=== PATIENT | female | born 2000 | race Caucasian/White ===

== ENCOUNTER → 2021-09-15 | Outpatient (CLI) | payer OTHER | END | disposition home or self-care (01) | LOC: LABWHC1 14:36 | PROVIDERS: ATTEND Obstetrics & Gynecology | DX: O20.0 Threatened abortion (principal) | CPT/HCPCS: 36415; 84702 ==

== ENCOUNTER 2021-09-21 22:28 | Emergency (ER) | payer OTHER ==
[2021-09-21 23:17] VITALS: TEMP 98.8
[2021-09-21 23:48] LABS: Basophils # (A) 0.1 k/uL (0-0.2); Basophils % (A) 1 %; Eosinophils # (A) 0.4 k/uL (0-0.7); Eosinophils % (A) 5 %; HCT 39.1 % (34.0-46.0); HGB 12.8 gm/dL (11.4-16.0); Lymphocytes # (A) 2.3 k/uL (1.0-4.8); Lymphocytes % (A) 27 %; MCH 30.8 pg (25.0-35.0); MCHC 32.6 g/dL (31.0-37.0); MCV 94.5 fL (80.0-100.0); Mean Platelet Volume 7.6; Monocytes # (A) 0.5 k/uL (0-1.0); Monocytes % (A) 5 %; Neutrophils # (A) 5.1 k/uL (1.3-7.7); Neutrophils % (A) 60 %; Platelet Count 269 k/uL (150-450); RBC 4.14 m/uL (3.80-5.40); RDW 12.3 % (11.5-15.5); WBC 8.5 k/uL (4.0-11.0)
[2021-09-21 23:58] LABS: ALT 10 U/L (4-34); AST 14 U/L (14-36); African American GFR (CKD) >90 (>60 ml/min/1.73 sqM); Alkaline Phosphatase 50 U/L (38-126); Anion Gap 10 mmol/L; Blood Urea Nitrogen 7 mg/dL (7-17); Calcium 9.3 mg/dL (8.4-10.2); Carbon Dioxide 26 mmol/L (22-30); Chloride 102 mmol/L (98-107); Glucose 88 mg/dL (74-99); Non-African American GFR(CKD) >90 (>60 ml/min/1.73 sqM); Potassium 3.6 mmol/L (3.5-5.1); Sodium 138 mmol/L (137-145); Total Bilirubin 0.4 mg/dL (0.2-1.3)
[2021-09-22 00:02] LABS: Appearance,Urine Cloudy (Clear); Bilirubin,Urine Negative (Negative); Blood,Urine Large (Negative); Color,Urine Yellow; Glucose,Urine (UA) Negative (Negative); Ketones,Urine Negative (Negative); Leukocyte Esterase,Urine Small (Negative); Mucus,Urine Many /hpf; Nitrite,Urine Negative (Negative); Protein,Urine 1+ (Negative); RBC,Urine 14 /hpf (0-5); Specific Gravity,Urine 1.031 (1.001-1.035); Squamous Epithelial Cell,Urine 7 /hpf (0-4); WBC,Urine 7 /hpf (0-5)
[2021-09-22 00:14] LABS: HCG,Quantitative Serum 9167.6 mIU/mL
--- NOTE | 2021-09-22 01:41 | US ---
EXAMINATION TYPE: Transabdominal DATE OF EXAM: 09/22/2021 1:25 AM COMPARISON: US CLINICAL HISTORY: Vag bleeding/6 weeks. Vaginal bleeding. Hx right ovarian cyst removed. . EXAM PERFORMED: Transvaginal (TV) and Transabdominal (TA) EXAM MEASUREMENTS: GESTATIONAL AGE / DATING Physician Established: Not yet established. Dates by LMP: (6 weeks/3 days) EDC: 05/15/2022 Dates by First Scan: IUP not seen on last exam. Dates by Current Scan for: ( 6 weeks/0 days) EDC: 05/18/2022 by CRL measurement. GS measures out of range transvaginally, GS measures 5 weeks, 1 day Transabdominally. MATERNAL ANATOMY Uterus: 7.0 x 5.9 x 4.6 cm. Anteverted. Right Ovary: 3.9 x 2.2 x 2.2 cm. Left Ovary: 3.1 x 1.8 x 1.3 cm. Post CDS / Adnexa: Appear wnl. Presence of free fluid: None seen. Presence of corpus luteal cyst: Possible within right ovary-Complex area with vascularity seen: 2.1 x 1.5 x 1.9 cm. Presence of subchorionic bleed: Not sen. GESTATION / SURVEY CRL: 0.38 cm. (6 weeks/0 days) MSD: OOR TV, 1.04 cm TA. (5 weeks/1 day by TA) Yolk Sac (normal less than 6mm): Not seen. Heart Rate: 69 bpm Rhythm: Difficult to measure HR, measures low. IUP: CRL seen measuring 6 weeks/ 0 days, HR of 69 bpm. Date of LMP: 08/08/2021 Beta HcG (if available): 9,167.6 mIU/mL IMPRESSION: Intrauterine gestational sac. The ultrasound gestational age is 6 weeks. No evidence of ectopic .
--- NOTE | 2021-09-22 01:46 | ED ---
General Adult HPI - General Chief complaint: Vaginal Bleeding Stated complaint: vaginal bleeding, 6 weeks preg Time Seen by Provider: 09/22/21 00:37 Source: patient Mode of arrival: ambulatory Limitations: no limitations - History of Present Illness Initial comments: 20 year-old female patient presents to the emergency department for evaluation of vaginal bleeding in . She is , roughly six weeks along. States she has been having bleeding for the last two weeks. States tonight she noticed a small blood clot and became very concerned. Bleeding has been light. Not soaking through any pads. Has not had to wear a pad/tampon/panty liner at all. States she has had mild cramping. Denies any back pain. She did have initial visit at OBGYN office for labs. Has not seen the physician yet. Last serum HCG 2626. - Related Data Previous Rx's Medication Instructions Recorded Cephalexin [Keflex] 500 mg PO Q12HR 3 Days #6 cap 09/12/21 78/Iron/Folate 1/Dha 1 each PO DAILY 30 Days #30 capsule 09/12/21 [Prenate Dha Softgel] Allergies Allergy/AdvReac Type Severity Reaction Status Date / Time No Known Allergies Allergy Verified 09/21/21 23:13 Review of Systems ROS Statement: Those systems with pertinent positive or pertinent negative responses have been documented in the HPI. ROS Other: All systems not noted in ROS Statement are negative. Past Medical History Past Medical History: No Reported History History of Any Multi-Drug Resistant Organisms: None Reported Past Surgical History: No Surgical Hx Reported Additional Past Surgical History / Comment(s): Ovarian cyst Past Psychological History: Depression Smoking Status: Vaper Past Alcohol Use History: None Reported Past Drug Use History: Marijuana General Exam Limitations: no limitations General appearance: alert, in no apparent distress, other (This is a well- developed, well-nourished adult female in no acute distress.) ENT exam: Present: normal exam, normal oropharynx, mucous membranes moist Respiratory exam: Present: normal lung sounds bilaterally. Absent: respiratory distress, wheezes, rales, rhonchi, stridor Cardiovascular Exam: Present: regular rate, normal rhythm, normal heart sounds. Absent: systolic murmur, diastolic murmur, rubs, gallop, clicks GI/Abdominal exam: Present: soft, normal bowel sounds. Absent: distended, tenderness, guarding, rebound, rigid Neurological exam: Present: alert, oriented X3, CN II-XII intact Psychiatric exam: Present: normal affect, normal mood Skin exam: Present: warm, dry, intact, normal color. Absent: rash Course Vital Signs 09/21/21 23:13 Temperature 98.8 F Pulse Rate 97 Respiratory 18 Rate Blood Pressure 120/62 O2 Sat by Pulse 100 Oximetry Medical Decision Making - Medical Decision Making 20-year-old female patient is presented to the emergency department today for evaluation after passing a blood clot. She is 6 weeks . Did have ultrasound 2 weeks ago which showed no intrauterine . Labs reviewed today and reveal elevated hCG at 9167. Previous hCG was 2626. ABO/Rh is A+. US today showed intrauterine measuring 6 weeks, heart rate 69, no evidence for subchorionic. I did discuss results with the patient. She is instructed to follow up with OBGYN tomorrow. I did give lab slip to have repeat HCG in two days. Did discuss threatened miscarriage. She is to maintain pelvic rest until cleared by OBGYN. He verbalizes understanding and is discharged in stable condition. My attending is Dr. Rangel. - Lab Data Result diagrams: 09/21/21 23:39 09/21/21 23:39 Lab Results 09/21/21 09/21/21 09/21/21 Range/Units 23:17 23:39 23:39 WBC 8.5 (4.0-11.0) k/uL RBC 4.14 (3.80-5.40) m/uL Hgb 12.8 (11.4-16.0) gm/dL Hct 39.1 (34.0-46.0) % MCV 94.5 (80.0-100.0) fL MCH 30.8 (25.0-35.0) pg MCHC 32.6 (31.0-37.0) g/dL RDW 12.3 (11.5-15.5) % Plt Count 269 (150-450) k/uL MPV 7.6 Neutrophils % 60 % Lymphocytes % 27 % Monocytes % 5 % Eosinophils % 5 % Basophils % 1 % Neutrophils # 5.1 (1.3-7.7) k/uL Lymphocytes # 2.3 (1.0-4.8) k/uL Monocytes # 0.5 (0-1.0) k/uL Eosinophils # 0.4 (0-0.7) k/uL Basophils # 0.1 (0-0.2) k/uL Sodium 138 (137-145) mmol/L Potassium 3.6 (3.5-5.1) mmol/L Chloride 102 (98-107) mmol/L Carbon Dioxide 26 (22-30) mmol/L Anion Gap 10 mmol/L BUN 7 (7-17) mg/dL Creatinine 0.63 (0.52-1.04) mg/dL Est GFR (CKD-EPI)AfAm >90 (>60 ml/min/1.73 sqM) Est GFR (CKD-EPI)NonAf >90 (>60 ml/min/1.73 sqM) Glucose 88 (74-99) mg/dL Calcium 9.3 (8.4-10.2) mg/dL Total Bilirubin 0.4 (0.2-1.3) mg/dL AST 14 (14-36) U/L ALT 10 (4-34) U/L Alkaline Phosphatase 50 (38-126) U/L Total Protein 7.0 (6.3-8.2) g/dL Albumin 4.0 (3.5-5.0) g/dL HCG, Quant 9167.6 mIU/mL Urine Color Yellow Urine Appearance Cloudy H (Clear) Urine pH 6.0 (5.0-8.0) Ur Specific [place] 1.031 (1.001-1.035) Urine Protein 1+ H (Negative) Urine Glucose (UA) Negative (Negative) Urine Ketones Negative (Negative) Urine Blood Large H (Negative) Urine Nitrite Negative (Negative) Urine Bilirubin Negative (Negative) Urine Urobilinogen 3.0 (<2.0) mg/dL Ur Leukocyte Esterase Small H (Negative) Urine RBC 14 H (0-5) /hpf Urine WBC 7 H (0-5) /hpf Ur Squamous Epith Cells 7 H (0-4) /hpf Urine Mucus Many H (None) /hpf Blood Type Blood Type Recheck Bld Type Recheck Status 09/21/21 Range/Units 23:39 WBC (4.0-11.0) k/uL RBC (3.80-5.40) m/uL Hgb (11.4-16.0) gm/dL Hct (34.0-46.0) % MCV (80.0-100.0) fL MCH (25.0-35.0) pg MCHC (31.0-37.0) g/dL RDW (11.5-15.5) % Plt Count (150-450) k/uL MPV Neutrophils % % Lymphocytes % % Monocytes % % Eosinophils % % Basophils % % Neutrophils # (1.3-7.7) k/uL Lymphocytes # (1.0-4.8) k/uL Monocytes # (0-1.0) k/uL Eosinophils # (0-0.7) k/uL Basophils # (0-0.2) k/uL Sodium (137-145) mmol/L Potassium (3.5-5.1) mmol/L Chloride (98-107) mmol/L Carbon Dioxide (22-30) mmol/L Anion Gap mmol/L BUN (7-17) mg/dL Creatinine (0.52-1.04) mg/dL Est GFR (CKD-EPI)AfAm (>60 ml/min/1.73 sqM) Est GFR (CKD-EPI)NonAf (>60 ml/min/1.73 sqM) Glucose (74-99) mg/dL Calcium (8.4-10.2) mg/dL Total Bilirubin (0.2-1.3) mg/dL AST (14-36) U/L ALT (4-34) U/L Alkaline Phosphatase (38-126) U/L Total Protein (6.3-8.2) g/dL Albumin (3.5-5.0) g/dL HCG, Quant mIU/mL Urine Color Urine Appearance (Clear) Urine pH (5.0-8.0) Ur Specific [place] (1.001-1.035) Urine Protein (Negative) Urine Glucose (UA) (Negative) Urine Ketones (Negative) Urine Blood (Negative) Urine Nitrite (Negative) Urine Bilirubin (Negative) Urine Urobilinogen (<2.0) mg/dL Ur Leukocyte Esterase (Negative) Urine RBC (0-5) /hpf Urine WBC (0-5) /hpf Ur Squamous Epith Cells (0-4) /hpf Urine Mucus (None) /hpf Blood Type A Positive Blood Type Recheck A Pos Bld Type Recheck Status No - Radiology Data Radiology results: report reviewed, image reviewed Ultrasound of the fetus was obtained. Report was reviewed in its entirety. Impression by Dr. Wharton shows intrauterine gestational sac. Ultrasound gestational age is 6 weeks. No evidence of ectopic . Heart rate of 69 bpm at this time. Disposition Clinical Impression: Threatened miscarriage Disposition: HOME SELF-CARE Condition: Good Instructions (If sedation given, give patient instructions): Threatened Misc arriage (ED) Additional Instructions: Maintain pelvic rest. Nothing inserted into the vagina until cleared by OBGYN. Call office in the morning to inform them of changes. Have repeat hormone level drawn in two days. Return to the emergency department for any new, worsening, or concerning symptoms. Is patient prescribed a controlled substance at d/c from ED?: No Referrals: Von Alonso MD [Primary Care Provider] - 1-2 days Time of Disposition: 01:46
[2021-09-22 02:13] VITALS: BP 117/80; PULSE 86; RESP 16
== END 2021-09-22 02:12 | disposition home or self-care (01) ==
LOC: EC 22:28
DX: O20.0 Threatened abortion (principal); F17.290 Nicotine dependence, other tobacco product, uncomplicated
CPT/HCPCS: 36415; 76801; 76817; 80053; 81001; 84702; 85025; 86900; 86901

== ENCOUNTER 2021-09-27 17:33 | Emergency (ER) | payer OTHER ==
[2021-09-27 17:37] VITALS: RESP 18
[2021-09-27 18:14] LABS: Basophils % (A) 1 %; Eosinophils # (A) 0.5 k/uL (0-0.7); Eosinophils % (A) 8 %; HCT 41.1 % (34.0-46.0); HGB 13.3 gm/dL (11.4-16.0); Lymphocytes % (A) 34 %; MCHC 32.3 g/dL (31.0-37.0); MCV 95.7 fL (80.0-100.0); Mean Platelet Volume 7.3; Monocytes # (A) 0.3 k/uL (0-1.0); Monocytes % (A) 6 %; Neutrophils # (A) 2.8 k/uL (1.3-7.7); Neutrophils % (A) 48 %; Platelet Count 267 k/uL (150-450); RDW 12.8 % (11.5-15.5); WBC 5.9 k/uL (4.0-11.0)
--- NOTE | 2021-09-27 18:17 | ED ---
General Adult HPI - General Chief complaint: Vaginal Bleeding Stated complaint: 6wks preg/vaginal bleeding Time Seen by Provider: 09/27/21 17:41 Source: patient Mode of arrival: ambulatory Limitations: no limitations - History of Present Illness Initial comments: 20-year-old female patient presents to the emergency department for evaluation of vaginal bleeding and . She is , 6 weeks 5 days . She has been having vaginal bleeding for the last couple of weeks. States that the bleeding seems to getting heavier though not soaking through any pads. She has been passing small blood clots. States the bleeding is more brown at this time which is a change. She does report left sided pelvic pain and pressure. She has not been able to see the [facility] yet. Was unable to return for repeat hCG test after her last visit here on 09/22/2021 due to exposure to cold with a. She did end up testing negative. Initial serum HCG 2626, last visit here was 9100 approximately 5 days ago. She denies any dizziness or weakness. Denies hematuria, dysuria, urinary frequency, urinary urgency. Denies constipation or diarrhea. - Related Data Home Medications Medication Instructions Recorded Confirmed No Known Home Medications 09/27/21 09/27/21 Allergies Allergy/AdvReac Type Severity Reaction Status Date / Time No Known Allergies Allergy Verified 09/27/21 18:55 Review of Systems ROS Statement: Those systems with pertinent positive or pertinent negative responses have been documented in the HPI. ROS Other: All systems not noted in ROS Statement are negative. Past Medical History Past Medical History: No Reported History History of Any Multi-Drug Resistant Organisms: None Reported Past Surgical History: No Surgical Hx Reported Additional Past Surgical History / Comment(s): Ovarian cyst Past Psychological History: Depression Smoking Status: Vaper Past Alcohol Use History: None Reported Past Drug Use History: Marijuana General Exam Limitations: no limitations General appearance: alert, in no apparent distress, other (This is a well- developed, well-nourished adult female in no acute distress.) ENT exam: Present: normal exam, normal oropharynx, mucous membranes moist Respiratory exam: Present: normal lung sounds bilaterally. Absent: respiratory distress, wheezes, rales, rhonchi, stridor Cardiovascular Exam: Present: regular rate, normal rhythm, normal heart sounds. Absent: systolic murmur, diastolic murmur, rubs, gallop, clicks GI/Abdominal exam: Present: soft, normal bowel sounds. Absent: distended, tenderness, guarding, rebound, rigid Neurological exam: Present: alert, oriented X3, CN II-XII intact Psychiatric exam: Present: normal affect, normal mood Skin exam: Present: warm, dry, intact, normal color. Absent: rash Course Vital Signs 09/27/21 09/27/21 17:34 20:06 Temperature 97.7 F 98.7 F Pulse Rate 100 70 Respiratory 18 18 Rate Blood Pressure 125/78 110/70 O2 Sat by Pulse 98 99 Oximetry Medical Decision Making - Medical Decision Making 20 year-old female patient presenting for persistent vaginal bleeding and passage of blood clots. Physical examination is unremarkable. Reports mild bleeding with passage of small clots. Labs reviewed and showed HCG 13,954. US OB was obtained and showed viable intrauterine measuring 6 weeks 2 days with heart rate in the 90s. I did discuss the findings with the patient. Discussed that the heart rate is low. She will be given lab order for repeat HCG in 2 days. She is instructed to maintain pelvic rest until cleared by the OBGYN. She is instructed to follow up as soon as possible. Return parameters are discussed in detail. She verbalizes understanding and agrees with this plan. My attending is Dr. Myers. - Lab Data Result diagrams: 09/27/21 18:05 09/27/21 18:05 Lab Results 09/27/21 09/27/21 09/27/21 Range/Units 18:00 18:05 18:05 WBC 5.9 (4.0-11.0) k/uL RBC 4.30 (3.80-5.40) m/uL Hgb 13.3 (11.4-16.0) gm/dL Hct 41.1 (34.0-46.0) % MCV 95.7 (80.0-100.0) fL MCH 31.0 (25.0-35.0) pg MCHC 32.3 (31.0-37.0) g/dL RDW 12.8 (11.5-15.5) % Plt Count 267 (150-450) k/uL MPV 7.3 Neutrophils % 48 % Lymphocytes % 34 % Monocytes % 6 % Eosinophils % 8 % Basophils % 1 % Neutrophils # 2.8 (1.3-7.7) k/uL Lymphocytes # 2.0 (1.0-4.8) k/uL Monocytes # 0.3 (0-1.0) k/uL Eosinophils # 0.5 (0-0.7) k/uL Basophils # 0.0 (0-0.2) k/uL Sodium 138 (137-145) mmol/L Potassium 4.1 (3.5-5.1) mmol/L Chloride 107 (98-107) mmol/L Carbon Dioxide 24 (22-30) mmol/L Anion Gap 7 mmol/L BUN 6 L (7-17) mg/dL Creatinine 0.52 (0.52-1.04) mg/dL Est GFR (CKD-EPI)AfAm >90 (>60 ml/min/1.73 sqM) Est GFR (CKD-EPI)NonAf >90 (>60 ml/min/1.73 sqM) Glucose 94 (74-99) mg/dL Calcium 8.9 (8.4-10.2) mg/dL Total Bilirubin 0.2 (0.2-1.3) mg/dL AST 15 (14-36) U/L ALT 11 (4-34) U/L Alkaline Phosphatase 49 (38-126) U/L Total Protein 6.8 (6.3-8.2) g/dL Albumin 3.9 (3.5-5.0) g/dL HCG, Quant 90799.8 mIU/mL Urine Color Yellow Urine Appearance Clear (Clear) Urine pH 6.5 (5.0-8.0) Ur Specific [place] 1.024 (1.001-1.035) Urine Protein Trace H (Negative) Urine Glucose (UA) Negative (Negative) Urine Ketones Negative (Negative) Urine Blood Small H (Negative) Urine Nitrite Negative (Negative) Urine Bilirubin Negative (Negative) Urine Urobilinogen <2.0 (<2.0) mg/dL Ur Leukocyte Esterase Negative (Negative) Urine RBC <1 (0-5) /hpf Urine WBC 1 (0-5) /hpf Ur Squamous Epith Cells 4 (0-4) /hpf Urine Mucus Few H (None) /hpf - Radiology Data Radiology results: report reviewed, image reviewed OB ultrasound is obtained. Report was reviewed in its entirety. Impression by Dr. Wharton shows ultrasound gestational age is 6 weeks and 2 days. Heart rate is 97 which is now within the normal range. Disposition Clinical Impression: Vaginal bleeding during , Threatened miscarriage Disposition: HOME SELF-CARE Condition: Good Instructions (If sedation given, give patient instructions): Threatened Miscarriage (ED) Additional Instructions: Pelvic rest, nothing inserted into the vagina until cleared by OBGYN. Follow-up with [facility] for recheck as soon as possible. Return for any new, worsening, or concerning symptoms. Is patient prescribed a controlled substance at d/c from ED?: No Referrals: Von Alonso MD [Primary Care Provider] - 1-2 days Daniel Enriquez MD [STAFF PHYSICIAN] - 1-2 days Time of Disposition: 19:40
[2021-09-27 18:33] LABS: ALT 11 U/L (4-34); AST 15 U/L (14-36); African American GFR (CKD) >90 (>60 ml/min/1.73 sqM); Albumin 3.9 g/dL (3.5-5.0); Alkaline Phosphatase 49 U/L (38-126); Anion Gap 7 mmol/L; Blood Urea Nitrogen 6 mg/dL (7-17); Calcium 8.9 mg/dL (8.4-10.2); Carbon Dioxide 24 mmol/L (22-30); Chloride 107 mmol/L (98-107); Glucose 94 mg/dL (74-99); Non-African American GFR(CKD) >90 (>60 ml/min/1.73 sqM); Potassium 4.1 mmol/L (3.5-5.1); Sodium 138 mmol/L (137-145); Total Bilirubin 0.2 mg/dL (0.2-1.3); Total Protein 6.8 g/dL (6.3-8.2)
--- NOTE | 2021-09-27 18:51 | US ---
EXAMINATION TYPE: Transabdominal DATE OF EXAM: 09/27/2021 6:31 PM COMPARISON: CLINICAL HISTORY: Heavy vaginal bleeding; passage of clots. Hx of spotting during . EXAM PERFORMED: Transabdominal (TA) EXAM MEASUREMENTS: GESTATIONAL AGE / DATING Physician Established: Not yet established Dates by LMP: (7 weeks/2 days) EDC: 05/14/2022 Dates by Current Scan for: (6 weeks/2 days) EDC: 05/21/2022 MATERNAL ANATOMY Uterus: 7.4 x 5.7 x 4.1 cm Right Ovary: 3.1 x 1.6 x 1.4 cm Left Ovary: 2.6 x 1.6 x 1.8 cm Post CDS / Adnexa: no free fluid Presence of free fluid: no Presence of corpus luteal cyst: right ovary= 1.6 x 1.4 x 1.4 cm Presence of subchorionic bleed: =0.8 x 0.7 x 0.5 cm GESTATION / SURVEY CRL: 0.4 cm (6 weeks/1 days) MSD: 1.4 cm (6 weeks/2 days) Yolk Sac (normal less than 6mm): 2.6 mm Heart Rate: 97 bpm, not within the normal range but could be due to gestational age Rhythm: Normal IUP: Viable IUP Date of LMP: 08/07/21, G1 Beta HcG (if available): Not available at this time Single live IUP measuring 6 weeks 2 days. Heart rate appears lower than normal range, could be due t o early gestational age. IMPRESSION: The ultrasound gestational age is 6 weeks and 2 days.
[2021-09-27 19:13] LABS: Appearance,Urine Clear (Clear); Bilirubin,Urine Negative (Negative); Blood,Urine Small (Negative); Color,Urine Yellow; Glucose,Urine (UA) Negative (Negative); Ketones,Urine Negative (Negative); Leukocyte Esterase,Urine Negative (Negative); Mucus,Urine Few /hpf; Nitrite,Urine Negative (Negative); PH, Urine 6.5 (5.0-8.0); Protein,Urine Trace (Negative); RBC,Urine <1 /hpf (0-5); Specific Gravity,Urine 1.024 (1.001-1.035); Squamous Epithelial Cell,Urine 4 /hpf (0-4); Urobilinogen,Urine <2.0 mg/dL (<2.0); WBC,Urine 1 /hpf (0-5)
[2021-09-27 19:18] LABS: HCG,Quantitative Serum 13954.8 mIU/mL
[2021-09-27 20:07] VITALS: BP 110/70; PULSE 70; TEMP 98.7
== END 2021-09-27 20:00 | disposition home or self-care (01) ==
LOC: EC 17:33
DX: O20.0 Threatened abortion (principal); F32.A Depression, unspecified; F17.290 Nicotine dependence, other tobacco product, uncomplicated; F12.90 Cannabis use, unspecified, uncomplicated; Z3A.01 Less than 8 weeks gestation of pregnancy
CPT/HCPCS: 36415; 76801; 80053; 81001; 84702; 85025; 99284

== ENCOUNTER → 2021-09-29 | Outpatient (CLI) | payer OTHER ==
--- NOTE | 2021-09-29 12:47 | US ---
EXAMINATION TYPE: Ultrasound OB <= 14 week fetus DATE OF EXAM: 09/29/2021 12:01 PM COMPARISON: 09/27/2021 CLINICAL HISTORY: 20-year-old female O26.851 Spotting complicating , first trimester. Contin ued vaginal bleeding in with clots noted today; ; followup subchorionic hemorrhage. EXAM PERFORMED: Transabdominal (TA). FINDINGS: EXAM MEASUREMENTS: GESTATIONAL AGE / DATING Physician Established: Not yet established Dates by LMP: 08/07/2021 (7 weeks/ 4 days) EDC: 05/14/2022 Dates by First Scan: (7 weeks/0 day) EDC: 05/18/2022 Dates by Current Scan for: (6 weeks/4 days) EDC: 05/21/2022 MATERNAL ANATOMY Uterus: 6.6 x 7.0 x 4.4cm Right Ovary: 2.5 x 4.2 x 1.5cm Left Ovary: 2.0 x 1.8 x 2.1cm Post CDS / Adnexa: wnl Presence of corpus luteal cyst: in right ovary = 2.0 x 1.6 x 1.3cm Presence of subchorionic bleed: yes, complex hypoechoic area is noted = 0.7 x 1.7 x 1.6cm. Located an teriorly and towards the left. (8 x 7 mm, previously) GESTATION / SURVEY CRL: 0.7cm (6 weeks/4 days) Yolk Sac (normal less than 6mm): 2.4mm Heart Rate: 100 bpm Rhythm: Normal IUP: single Date of LMP: 08/07/2021 Beta HcG (if available): NA [employer] Operator notes: Single, live IUP,(6 weeks/4 days, EDC: 05/21/2022 HR 100bpm (average of 2 measures ); Presence of subchorionic bleed: complex hypoechoic area is noted = 0.7 x 1.7 x 1.6cm. Tech findings called to David nurse at Dr Enriquez's Office at exam's end. IMPRESSION: 1. Single live intrauterine with gestational age of 6 weeks 4 days by crown-rump length. Th ere has been appropriate 2 days of growth as compared to the prior 09/27/2021 exam but 3 days less luke wth than expected compared to the patient's first scan performed on 09/22/2021. 2. A 1.7 cm perigestational bleed located anteriorly and towards the left is slightly larger compared to 8 mm, previously. 3. For a at 6 weeks 4 days, heart rate of 100 BPM qualifies as bradycardia. Close fol low-up recommended.
== END | disposition home or self-care (01) ==
LOC: RADUSWWP 11:32
PROVIDERS: ATTEND Obstetrics & Gynecology
DX: O26.851 Spotting complicating pregnancy, first trimester (principal); Z3A.01 Less than 8 weeks gestation of pregnancy
CPT/HCPCS: 36415; 76801; 84702

== ENCOUNTER 2021-10-21 22:48 | Emergency (ER) | payer OTHER ==
[2021-10-21 22:55] VITALS: TEMP 98.5
[2021-10-21] MEDS ORDERED: SODIUM CHLORIDE 0.9% 500 ML 500 ML IV STA (23:15)
[2021-10-21 23:48] LABS: Basophils # (A) 0.1 k/uL (0-0.2); Basophils % (A) 1 %; Eosinophils # (A) 0.7 k/uL (0-0.7); Eosinophils % (A) 7 %; HCT 38.2 % (34.0-46.0); HGB 12.9 gm/dL (11.4-16.0); Lymphocytes # (A) 2.9 k/uL (1.0-4.8); Lymphocytes % (A) 31 %; MCHC 33.9 g/dL (31.0-37.0); MCV 94.6 fL (80.0-100.0); Mean Platelet Volume 7.3; Monocytes # (A) 0.5 k/uL (0-1.0); Monocytes % (A) 5 %; Neutrophils # (A) 5.1 k/uL (1.3-7.7); Neutrophils % (A) 55 %; Platelet Count 266 k/uL (150-450); RBC 4.04 m/uL (3.80-5.40); RDW 12.2 % (11.5-15.5); WBC 9.2 k/uL (3.8-10.6)
--- NOTE | 2021-10-21 23:58 | ED ---
General Adult HPI - General Chief complaint: Vaginal Bleeding Stated complaint: Poss miscarriage Time Seen by Provider: 10/21/21 23:14 Source: patient Mode of arrival: ambulatory Limitations: no limitations - History of Present Illness Initial comments: This patient is a 21-year-old woman who states that she is approximately weeks . She states that she noticed that she had been having some pelvic cramping all day which got worse tonight around 7:30 PM. She states that she had been having a little spotting and then she began to pass clots this evening. She states that tonight she had a coughing episode. She then felt I which she described as a popping sensation in the pelvic area and then she passed some tissue that she is certain represent miscarriage. Patient states that since that time she has had a little bit of slowing of the bleeding. The cramping is subsiding. Patient believes she is blood type A positive. -: hour(s) Location: pelvis Radiation: non-radiation Quality: other (Rapid) Consistency: now resolved Improves with: none Worsens with: none Associated Symptoms: other (Vaginal bleeding) Treatments Prior to Arrival: none - Related Data Home Medications Medication Instructions Recorded Confirmed No Known Home Medications 09/27/21 09/27/21 Allergies Allergy/AdvReac Type Severity Reaction Status Date / Time No Known Allergies Allergy Verified 10/21/21 22:50 Review of Systems ROS Statement: Those systems with pertinent positive or pertinent negative responses have been documented in the HPI. ROS Other: All systems not noted in ROS Statement are negative. Constitutional: Denies: fever, chills, weakness Respiratory: Denies: cough, dyspnea Cardiovascular: Denies: chest pain, palpitations, edema, syncope Gastrointestinal: Reports: as per HPI, abdominal pain. Denies: nausea, vomiting, diarrhea, constipation Genitourinary: Reports: as per HPI, abnormal menses. Denies: dysuria, frequency, hematuria, discharge Musculoskeletal: Denies: back pain Skin: Denies: rash Neurological: Denies: headache, weakness, numbness Hematological/Lymphatic: Denies: easy bleeding Past Medical History Past Medical History: No Reported History, Myocardial Infarction ([place]) History of Any Multi-Drug Resistant Organisms: None Reported Past Surgical History: No Surgical Hx Reported Additional Past Surgical History / Comment(s): Ovarian cyst Past Psychological History: Anxiety, Depression Smoking Status: Current every day smoker, Vaper Past Alcohol Use History: None Reported Past Drug Use History: Marijuana General Exam Limitations: no limitations General appearance: alert, in no apparent distress Head exam: Present: atraumatic, normocephalic Eye exam: Present: normal appearance. Absent: scleral icterus, conjunctival injection Neck exam: Present: normal inspection Respiratory exam: Present: normal lung sounds bilaterally. Absent: respiratory distress, wheezes, rales, rhonchi, stridor Cardiovascular Exam: Present: regular rate, normal rhythm, normal heart sounds. Absent: systolic murmur, diastolic murmur, rubs, gallop GI/Abdominal exam: Present: soft. Absent: distended, tenderness, guarding, rebound, rigid, mass Extremities exam: Present: normal inspection, normal capillary refill. Absent: pedal edema, calf tenderness Back exam: Present: normal inspection. Absent: CVA tenderness (R), CVA tenderness (L) Neurological exam: Present: alert Skin exam: Present: warm, dry, intact, normal color. Absent: rash Course Vital Signs 10/21/21 22:50 Temperature 98.5 F Pulse Rate 121 H Respiratory 20 Rate Blood Pressure 136/76 O2 Sat by Pulse 99 Oximetry Medical Decision Making - Medical Decision Making This patient is a 21-year-old woman in her early who believes she has had a miscarriage at home. I did recommend having gynecologic examination to assess the patient's cervix and make sure there is no further tissue as well as to assess the amount of bleeding. The patient states that her symptoms are resolving and she would rather hold off. 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 She will return should symptoms recur or new symptoms develop. - Lab Data Result diagrams: 10/21/21 23:27 Lab Results 10/21/21 10/21/21 10/21/21 Range/Units 23:27 23:27 23:35 WBC 9.2 (3.8-10.6) k/uL RBC 4.04 (3.80-5.40) m/uL Hgb 12.9 (11.4-16.0) gm/dL Hct 38.2 (34.0-46.0) % MCV 94.6 (80.0-100.0) fL MCH 32.0 (25.0-35.0) pg MCHC 33.9 (31.0-37.0) g/dL RDW 12.2 (11.5-15.5) % Plt Count 266 (150-450) k/uL MPV 7.3 Neutrophils % 55 % Lymphocytes % 31 % Monocytes % 5 % Eosinophils % 7 % Basophils % 1 % Neutrophils # 5.1 (1.3-7.7) k/uL Lymphocytes # 2.9 (1.0-4.8) k/uL Monocytes # 0.5 (0-1.0) k/uL Eosinophils # 0.7 (0-0.7) k/uL Basophils # 0.1 (0-0.2) k/uL HCG, Quant 2121.8 mIU/mL Blood Type A Positive Blood Type Recheck A Pos Bld Type Recheck Status No Disposition Clinical Impression: Spontaneous Disposition: HOME SELF-CARE Condition: Good Instructions (If sedation given, give patient instructions): Miscarriage (ED) Is patient prescribed a controlled substance at d/c from ED?: No Referrals: Nonstaff,Physician [Primary Care Provider] - 1-2 days
[2021-10-22 01:02] VITALS: BP 108/64; PULSE 88; RESP 14
== END 2021-10-22 01:02 | disposition home or self-care (01) ==
LOC: EC 22:48
DX: O03.9 Complete or unspecified spontaneous abortion without complication (principal); I25.2 Old myocardial infarction; F12.90 Cannabis use, unspecified, uncomplicated; F41.9 Anxiety disorder, unspecified; F32.A Depression, unspecified; F17.290 Nicotine dependence, other tobacco product, uncomplicated
CPT/HCPCS: 36415; 84702; 85025; 86900; 86901; 96360; 99284

== ENCOUNTER 2023-12-27 12:13 | Inpatient (IN) | payer OTHER ==
[2023-12-27] MEDS ORDERED: LABETALOL 5 MG/ML VIAL MDV IVP PRN (13:04)
[2023-12-27] MEDS ORDERED: hydrALAZINE HCL 20 MG/ML 1 ML VIAL IVP PRN (13:04)
[2023-12-27] MEDS: LABETALOL 5 MG/ML VIAL MDV IVP PRN ×2 (13:25→14:01)
[2023-12-27] MEDS: LACTATED RINGERS 1,000 ML IV SCH ×3 (13:29→17:21)
[2023-12-27 13:44] LABS: ALT 12 U/L (4-34); AST 20 U/L (14-36); African American GFR (CKD) >90 (>60 ml/min/1.73 sqM); Blood Urea Nitrogen 11 mg/dL (7-17); LDH 202 U/L (120-246); Non-African American GFR(CKD) >90 (>60 ml/min/1.73 sqM); Uric Acid 5.6 mg/dL (3.7-7.4)
[2023-12-27 13:54] LABS: Basophils % (A) 0 %; Eosinophils # (A) 0.4 k/uL (0-0.7); Eosinophils % (A) 4 %; HCT 35.8 % (34.0-46.0); HGB 11.8 gm/dL (11.4-16.0); Lymphocytes # (A) 1.6 k/uL (1.0-4.8); Lymphocytes % (A) 16 %; MCH 29.7 pg (25.0-35.0); MCV 89.9 fL (80.0-100.0); Mean Platelet Volume 10.5; Monocytes # (A) 0.6 k/uL (0-1.0); Monocytes % (A) 6 %; Neutrophils # (A) 7.4 k/uL (1.3-7.7); Neutrophils % (A) 72 %; Platelet Count 212 k/uL (150-450); RBC 3.98 m/uL (3.80-5.40); RDW 13.3 % (11.5-15.5); WBC 10.3 k/uL (3.8-10.6)
[2023-12-27 14:12] LABS: INR 0.8 (<1.2); Partial Thromboplastin Time 23.1 sec (22.0-30.0); Prothrombin Time 9.3 sec (10.0-12.5)
[2023-12-27 14:37] LABS: Appearance,Urine Turbid (Clear); Bilirubin,Urine Negative (Negative); Blood,Urine Trace (Negative); Color,Urine Yellow; Glucose,Urine (UA) Trace (Negative); Ketones,Urine Trace (Negative); Leukocyte Esterase,Urine Trace (Negative); Mucus,Urine Many /hpf; Nitrite,Urine Negative (Negative); PH, Urine 6.5 (5.0-8.0); Protein,Urine 3+ (Negative); RBC,Urine 4 /hpf (0-5); Specific Gravity,Urine 1.033 (1.001-1.035); Squamous Epithelial Cell,Urine 30 /hpf (0-4); WBC,Urine 12 /hpf (0-5)
[2023-12-27 14:38] LABS: Amphetamine Screen,Urine Not Detected (NotDetected); Barbiturate Screen,Urine Not Detected (NotDetected); Benzodiazepines Screen,Urine Not Detected (NotDetected); Cocaine Screen,Urine Not Detected (NotDetected); Methadone Screen, Urine Not Detected (NotDetected); Opiate Screen,Urine Not Detected (NotDetected); Oxycodone Screen, Urine Not Detected (NotDetected); Phencyclidine Screen,Urine Not Detected (NotDetected); Tricyclic Antidepressant,Urine Not Detected (NotDetected); Urn Cannabinoid Scrn Detected (NotDetected)
[2023-12-27] MEDS ORDERED: METHYLERGONOVINE 0.2 MG/ML 1 ML AMP IM PRN (15:38)
[2023-12-27] MEDS ORDERED: TRANEXAMIC 1,000 MG/100ML-NACL 1,000 MG in EMPTY BAG 1 BAG IV PRN (15:38)
[2023-12-27] MEDS ORDERED: miSOPROStoL 200 MCG TAB PO PRN (15:38)
[2023-12-27] MEDS ORDERED: CARBOPROST TROMETHAMINE 250 MCG/ML 1 ML AMP IM PRN (15:38)
[2023-12-27] MEDS ORDERED: OXYTOCIN 10 UNIT/ML 1 ML VIAL IM PRN (15:38)
[2023-12-27] MEDS ORDERED: LIDOCAINE 0.5% (PF) 5 MG/ML (50 ML SDV) SQ PRN (15:38)
[2023-12-27] MEDS ORDERED: TERBUTALINE 1 MG/ML VIAL SQ PRN (15:38)
[2023-12-27] MEDS ORDERED: CALCIUM GLUCONATE 1 GM/10 ML VIAL IV PRN (17:05)
[2023-12-27] MEDS: MAGNESIUM SULFATE-WATER PMX 4 GM in WATER FOR INJECTION 1 100ML.BAG IVPB ONE (17:15)
[2023-12-27] MEDS: MAGNESIUM SULFATE-WATER PMX 20 GM in WATER FOR INJECTION 1 500ML.BAG IV SCH (17:32)
--- NOTE | 2023-12-27 17:55 | P.HPOB ---
History of Present Illness H&P Date: 12/27/23 Chief Complaint: 36-2/7 weeks, preeclampsia with severe features Patient is a 23-year-old 2 para 0-0-1-0 admitted at 36-2/7 weeks as established by last menstrual period and confirmed by 9-week ultrasound. She is admitted from the office where she was found with blood pressures in the range of 1 40-1 10/120. She denies headaches but was sent to the hospital for l aboratory workup and serial blood pressures as well as NST. On labor and delivery, all signs are reassuring with a category 1 heart rate tracing. She continued to have significantly labile blood pressures ranging from 140-170 over 90s to 110s. Labs drawn failed to demonstrate any significant findings. The labetalol protocol was enacted and she continued to have significantly elevated and labile blood pressures. Her urine did show 3+ urine protein and she has had significant increase in edema with a weight gain of 11 pounds since last week. Given these findings, the diagnosis of preeclampsia with severe features based upon blood pressures alone was made and decision was made to pr oceed with delivery. As the patient cervix is somewhat favorable, she was given the option of proceeding with induction of labor versus proceeding with delivery to affect quicker delivery remote from actual delivery at this time. She has opted to proceed with induction of labor. Group B strep status is not known. Obstetrical history: 2 para 0-0-1-0 with 1 early miscarriage. Current statistics are listed in history of present illness. EDC of 01/22/2024 was established by last menstrual period and confirmed by 9-week ultrasound. She did transfer care to our practice at approximately 33+ weeks of gestation. Prior to this episode her has been uncomplicated. Laboratory workup demonstrates a blood type of A+ with a negative antibody screen. Rubella status is at this time undocumented. The remainder of the laboratory workup was within normal limits. 1 hour Glucola was normal and group B strep status was only taken today and is therefore not available. Gynecologic history: Unremarkable with no history of any infections to include STDs. Review of Systems Review of systems is confined to history of present illness. Past Medical History Past Medical History: No Reported History Additional Past Medical History / Comment(s): "Tachycardia event when 15yrs old" per pt. History of Any Multi-Drug Resistant Organisms: None Reported Past Surgical History: No Surgical Hx Reported Additional Past Surgical History / Comment(s): Ovarian cyst Past Anesthesia/Blood Transfusion Reactions: No Reported Reaction Past Psychological History: Anxiety, Depression Smoking Status: Current every day smoker, Vaper Past Alcohol Use History: None Reported Past Drug Use History: Marijuana - Past Family History Mother History Unknown: Yes Family Medical History: Hypertension Father Family Medical History: Cancer Medications and Allergies Home Medications Medication Instructions Recorded Confirmed Type Pnv 11/Iron Fum/Folic Acid/Om3 1 each PO DAILY 12/27/23 12/27/23 History [Wesnate Dha Softgel] Allergies Allergy/AdvReac Type Severity Reaction Status Date / Time No Known Allergies Allergy Verified 12/27/23 12:31 Exam Vital Signs Temp Pulse Resp BP Pulse Ox 12/27/23 17:35 18 151/84 12/27/23 17:20 18 146/73 12/27/23 17:05 159/84 12/27/23 15:30 97.3 F L 93 18 169/107 97 12/27/23 12:58 97.0 F L 84 18 162/102 97 Intake and Output 12/27/23 12/27/23 12/27/23 06:59 14:59 22:59 Other: Weight 96.615 kg 96.615 kg In general, this is a well-developed, well-nourished white female in no acute distress though she does appear somewhat puffy. Her heart has a regular rhythm and rate without murmur. Her lungs are clear to auscultation bilaterally in all van. Her abdomen is gravid, nondistended, has normal active bowel sounds, is soft, nontender, and without any palpable masses aside from the uterine fundus. Her extremities are without any cyanosis or clubbing though there is 1+ bilateral lower extremity edema to near the knees bilaterally. Digital cervical examination demonstrates her cervix to be 2+ centimeters dilated, 60% effaced, with the vertex and presentation at -2 station. Artificial rupture of membranes is carried out demonstrating clear fluid. Results Result Diagrams: 12/27/23 13:05 12/27/23 13:07 Abnormal Lab Results - Last 24 Hours (Table) 12/27/23 12/27/23 12/27/23 Range/Units 13:07 14:24 14:24 PT 9.3 L (10.0-12.5) sec Fibrinogen 603 H (200-500) mg/dL Urine Appearance Turbid H (Clear) Urine Protein 3+ H (Negative) Urine Glucose (UA) Trace H (Negative) Urine Ketones Trace H (Negative) Urine Blood Trace H (Negative) Ur Leukocyte Esterase Trace H (Negative) Urine WBC 12 H (0-5) /hpf Ur Squamous Epith Cells 30 H (0-4) /hpf Urine Mucus Many H (None) /hpf U Marijuana (THC) Screen Detected H (NotDetected) Assessment and Plan (1) 36 to 37 weeks gestation of Current Visit: Yes Status: Acute Code(s): RFE6398 - SNOMED Code(s): 529245182 (2) Severe preeclampsia Current Visit: Yes Status: Acute Code(s): O14.10 - SEVERE PRE-ECLAMPSIA, UNSPECIFIED TRIMESTER SNOMED Code(s): 96815134 Plan: Patient is admitted for delivery. After a long discussion of risks and complications and options, the patient has elected to proceed with induction of labor in the hopes that her body will respond under these conditions quickly. Should there be any significant stalling, the patient may be opting to change her mind. Nevertheless, just augmentation has been started and she has undergone artificial rupture of membranes. Magnesium sulfate has been started with a 4 g bolus followed by 2 g/h. She additionally will have antibiotic p rophylaxis started for group B strep status being unknown. She will have close maternal and surveillance and expectant management will be practiced. She is a good candidate for either IV, epidural, or nitrous analgesia, whichever she may choose. The risks and complications have been thoroughly discussed and the patient is aware of the risk for potentially increasing severe features and even eclampsia. Thus, prophylaxis with magnesium sulfate has been undertaken.
[2023-12-27] MEDS: OXYTOCIN 30 UNITS/500 ML NS 30 UNIT in SALINE 1 500ML.BAG IV SCH (18:03)
[2023-12-27] MEDS: PENICILLIN G POTASSIUM 5,000,000 UNIT in DEXTROSE 5% IN WATER 100 ML IVPB STA (18:34)
[2023-12-27] MEDS: NALBUPHINE 10 MG/ML (10 ML MDV) IV PRN (22:13)
[2023-12-27] MEDS: PENICILLIN G POTASSIUM 2,500,000 UNIT in DEXTROSE 5% IN WATER 100 ML IVPB SCH (22:19)
[2023-12-27] MEDS: LABETALOL 5 MG/ML VIAL MDV IVP STA (23:09)
[2023-12-28] MEDS ORDERED: SODIUM CHLORIDE 0.9% 250 ML BAG ONE (01:15)
[2023-12-28] MEDS ORDERED: ROPIVACAINE 5 MG/ML 30 ML VIAL ONE (01:15)
[2023-12-28] MEDS ORDERED: fentaNYL (PF) 50 MCG/ML 5 ML AMP ONE (01:15)
[2023-12-28] MEDS: ONDANSETRON 4 MG/2 ML VIAL IVP STA (02:17)
[2023-12-28] MEDS: ONDANSETRON 4 MG/2 ML VIAL IVP PRN (10:22)
[2023-12-28] MEDS: LABETALOL 5 MG/ML VIAL MDV IVP STA (12:15)
[2023-12-28] MEDS ORDERED: diphenhydrAMINE 50 MG/ML 1 ML VIAL IVP PRN ×2 (16:16)
[2023-12-28] MEDS ORDERED: SIMETHICONE 80 MG CHEWABLE PO PRN (16:16)
[2023-12-28] MEDS ORDERED: diphenhydrAMINE 50 MG CAP PO PRN (16:16)
[2023-12-28] MEDS ORDERED: HYDROcodone/APAP 7.5-325MG 1 EACH TAB PO PRN (16:16)
[2023-12-28] MEDS ORDERED: ZOLPIDEM 5 MG TAB PO PRN (16:16)
[2023-12-28] MEDS ORDERED: LANOLIN CREAM 1 GM TUBE TOPICAL PRN (16:16)
[2023-12-28] MEDS ORDERED: BENZOCAINE/MENTHOL SPRAY 1 GM/SPRAY AEROSOL TOPICAL PRN (16:16)
[2023-12-28] MEDS ORDERED: HYDROcodone/APAP 5-325MG 1 EACH TAB PO PRN (16:16)
[2023-12-28] MEDS ORDERED: diphenhydrAMINE 25 MG CAP PO PRN (16:16)
[2023-12-28] MEDS ORDERED: HYDROCORTISONE 2.5% RECTAL CREAM 30 GM TUBE RECTAL PRN (16:16)
--- NOTE | 2023-12-28 16:25 | P.PROBDLV ---
Vaginal Delivery Note - . Vaginal Delivery Note: Patient is a 23-year-old 2 para 0-0-1-0 initially admitted at 36-2/7 weeks by good dating parameters. She was admitted from the office with significantly elevated and mobile blood pressures with a greater than 10 pound weight gain in 1 week and increasing edema as well as 3+ urine protein. Her had to that point had been otherwise uncomplicated. Group B strep status was not yet known. On labor and delivery, she had laboratory checked for preeclampsia all of which was relatively within normal limits. She continued to have significantly labile blood pressures with the disparity and elevation levels qualifying for the diagnosis of preeclampsia with severe features. She denied any secondary symptoms to include headache or scotomata or right upper quadrant pain. The decision was made to proceed with delivery. The patient was counseled regarding induction of labor versus proceeding with primary low- transverse section as she was remote from delivery though she did have a somewhat favorable cervix. The patient opted to proceed with induction of labor. She had magnesium sulfate started intravenously with a 4 g load followed by 2 g/h. She had Pitocin augmentation started and underwent artificial rupture of membranes for clear fluid. She additionally had antibiotic prophylaxis started as her group B strep status was unknown. She continued to have significantly labile blood pressures with multiple episodes needing intervention with IV labetalol which did control it for the most part. Around the onset of the active phase of labor in the middle of the night, she had an epidural catheter placed for analgesia. Thereafter, her blood pressures remained in significantly better control until today at which time she did require intervention on a couple of more occasions. She made very slow and gradual progress through the active phase of labor but ultimately did progressed to complete. She then pushed over the course of approximately 1 hour and 15 minutes to a normal spontaneous vaginal delivery of a viable 6 pound 8 ounce baby boy with Apgars of 8 at 1 minute and 9 at 5 minutes delivered in the direct occiput anterior position. The placenta was delivered spontaneously, intact, and grossly normal with a grossly normal three-vessel cord inserted approximately 1 to 2 cm from the margin of the placental disc. There were no lacerations of the perineum, vagina, or cervix. She did have some initial atony but that we responded to addition of IV Pitocin and uterine massage. Estimated blood loss for the case was approximately 250 mL. All sponge, instrument, and needle counts were correct. Both mother and infant are resting comfortably in recovery. She will continue to have magnesium sulfate 2 g/h intravenously for 24 hours following delivery. Careful attention will be paid to her blood pressures to assess the need for antihypertensive intervention.
[2023-12-28] MEDS ORDERED: OXYTOCIN 30 UNITS/500 ML NS 30 UNIT in SALINE 1 500ML.BAG IV SCH (16:30)
[2023-12-28] MEDS: ACETAMINOPHEN TAB 325 MG TAB PO PRN (18:50)
[2023-12-28] MEDS: SENNOSIDES-DOCUSATE SODIUM 1 EACH TAB PO SCH (20:58)
[2023-12-28] MEDS: IBUPROFEN 600 MG TAB PO PRN (22:46)
[2023-12-29 07:59] LABS: Basophils % (A) 0 %; Eosinophils # (A) 0.3 k/uL (0-0.7); Eosinophils % (A) 2 %; HCT 29.4 % (34.0-46.0); Lymphocytes # (A) 2.1 k/uL (1.0-4.8); Lymphocytes % (A) 14 %; MCH 29.4 pg (25.0-35.0); MCHC 32.7 g/dL (31.0-37.0); Mean Platelet Volume 10.2; Monocytes # (A) 0.7 k/uL (0-1.0); Monocytes % (A) 4 %; Neutrophils # (A) 11.3 k/uL (1.3-7.7); Neutrophils % (A) 77 %; Platelet Count 165 k/uL (150-450); RBC 3.27 m/uL (3.80-5.40); RDW 13.4 % (11.5-15.5); WBC 14.8 k/uL (3.8-10.6)
[2023-12-29 08:00] LABS: HGB 9.6 gm/dL (11.4-16.0)
--- NOTE | 2023-12-29 10:12 | P.PNOBGVD ---
Subjective - Subjective Patient reports: Reports appetite normal, Reports voiding normally, Reports pain well controlled, Reports ambulating normally : doing well, in NICU (Starting prophylactic antibiotics, off oxygen supplementation.) Objective - Latest Vital Signs Latest vital signs: Vital Signs Temp Pulse Resp BP Pulse Ox 12/29/23 08:10 97.7 F 80 16 135/80 95 12/29/23 06:00 97.6 F 90 16 159/93 97 12/29/23 02:00 97.8 F 85 16 143/89 97 12/28/23 22:00 97.6 F 90 18 156/87 97 12/28/23 18:23 89 16 159/96 12/28/23 18:08 98 F 88 16 158/96 12/28/23 17:52 89 16 158/96 12/28/23 17:38 90 16 158/96 12/28/23 17:23 88 16 154/94 12/28/23 17:08 91 16 153/94 12/28/23 16:53 90 16 159/98 12/28/23 16:35 95 16 157/96 12/28/23 16:23 115 H 16 139/87 12/28/23 14:00 82 16 139/93 Intake and Output 12/28/23 12/29/23 12/29/23 22:59 06:59 14:59 Intake Total 459.167 200 Output Total 765 Balance -765 459.167 200 Intake: IV 200 Intake, IV Titration 459.167 Amount Magnesium Sulfate-Water 459.167 Pmx 20 gm In Water For Injection 1 500ml.bag @ 2 GM/HR 50 mls/hr IV .Q10H [facility] Rx#:[id number] Output: Urine 300 Estimated Blood Loss 250 Output, Quantitative 215 Blood Loss Other: # Voids 1 2 - Exam Chest: Normal S1, Normal S2 Extremities: Present: normal, edema (1+ bilateral lower extremity edema) Abdomen: Present: normal appearance, soft Uterus: Present: normal, firm (The uterine fundus is tonic and minimally tender below the umbilicus.) - Labs Labs: Abnormal Lab Results - Last 24 Hours (Table) 12/29/23 Range/Units 07:22 WBC 14.8 H (3.8-10.6) k/uL RBC 3.27 L (3.80-5.40) m/uL Hgb 9.6 L D (11.4-16.0) gm/dL Hct 29.4 L (34.0-46.0) % Neutrophils # 11.3 H (1.3-7.7) k/uL Assessment and Plan (1) 36 to 37 weeks gestation of Current Visit: Yes Status: Acute Code(s): AWC4732 - SNOMED Code(s): 226859115 (2) Severe preeclampsia Current Visit: Yes Status: Acute Code(s): O14.10 - SEVERE PRE-ECLAMPSIA, UNSPECIFIED TRIMESTER SNOMED Code(s): 54534196 (3) Normal spontaneous vaginal delivery Current Visit: Yes Status: Acute Code(s): O80 - ENCOUNTER FOR FULL-TERM UNCOMPLICATED DELIVERY SNOMED Code(s): 67283203 Plan: Continue routine care. Blood pressures remaining in a range that does not require treatment at this time. Magnesium sulfate will be continued until 24 hours . We will continue to monitor blood pressures closely to assess the need for antihypertensive therapy. Discharge home may be possible tomorrow pending monitoring of blood pressures after magnesium sulfate is stopped.
[2023-12-29] MEDS: LABETALOL 100 MG TAB PO SCH (17:23)
[2023-12-30] MEDS: LABETALOL 100 MG TAB PO STA (09:33)
--- NOTE | 2023-12-30 10:35 | P.PNOBGVD ---
Subjective - Subjective Interval history: The patient denies any secondary symptoms of preeclampsia to include headache or scotomata. She does report feeling fairly significantly emotional and has requested intervention. She has used Zoloft effectively in the past. Patient reports: Reports appetite normal, Reports voiding normally, Reports pain well controlled, Reports ambulating normally : doing well Objective - Latest Vital Signs Latest vital signs: Vital Signs Temp Pulse Resp BP Pulse Ox 12/30/23 08:00 98.6 F 83 16 153/89 98 12/30/23 04:00 98 F 80 18 160/90 98 12/30/23 00:00 98 F 80 18 156/95 98 12/29/23 20:00 98.6 F 84 16 145/87 98 12/29/23 16:23 98.3 F 77 16 162/95 98 12/29/23 12:01 98.0 F 78 16 154/91 96 Intake and Output 12/29/23 12/30/23 12/30/23 22:59 06:59 14:59 Intake Total 320 Balance 320 Intake: Intake, IV Titration 320 Amount Magnesium Sulfate-Water 320 Pmx 20 gm In Water For Injection 1 500ml.bag @ 2 GM/HR 50 mls/hr IV .Q10H [facility] Rx#:[id number] Other: # Voids 2 Weight 94.9 kg - Exam Extremities: Present: normal Abdomen: Present: normal appearance, soft Uterus: Present: normal, firm (The uterine fundus is tonic and minimally tender below the umbilicus.) - Labs Labs: Abnormal Lab Results - Last 24 Hours (Table) 12/29/23 Range/Units 07:22 Rubella IgG Antibody 91.10 H (0.00-9.00) IU/mL Assessment and Plan (1) 36 to 37 weeks gestation of Current Visit: Yes Status: Acute Code(s): SPL5109 - SNOMED Code(s): 971813763 (2) Severe preeclampsia Current Visit: Yes Status: Acute Code(s): O14.10 - SEVERE PRE-ECLAMPSIA, UNSPECIFIED TRIMESTER SNOMED Code(s): 36168022 (3) Normal spontaneous vaginal delivery Current Visit: Yes Status: Acute Code(s): O80 - ENCOUNTER FOR FULL-TERM UNCOMPLICATED DELIVERY SNOMED Code(s): 49801512 Plan: Blood pressures have remained relatively high and somewhat labile despite labetalol 100 mg twice daily. As a result, the patient will remain in the hospital for another day and I have increased her labetalol to 200 mg twice daily. Additionally, I will add Zoloft 50 mg daily as the patient has used this effectively in the past. Assuming she has 24 hours of stable and manageable blood pressures, discharge may be considered tomorrow.
[2023-12-30] MEDS: LABETALOL 200 MG TAB PO SCH ×2 (10:49→21:05)
[2023-12-30] MEDS: SERTRALINE 50 MG TAB PO SCH (11:25)
[2023-12-31] MEDS ORDERED: SERTRALINE 50 MG TAB PO SCH (09:00)
--- NOTE | 2023-12-31 09:21 | P.PNOBGVD ---
Subjective - Subjective Principal diagnosis: S/p NVD PPD #3 Interval history: Patient has day #3. She is feeling very well. Seen and examined in the nursery while she was holding her baby. Patient denies any headache or vision changes. She denies any nausea vomiting chest pain shortness of breath or calf pain. Patient continues to have elevated blood pressures up to 180/100 just prior to her 200 mg labetalol dose last night. When she did take the labetalol it did start trending down. Right now she is on 200 mg of labetalol twice a day. I'm going to increase that dose to 3 times a day. She will stay again overnight to ensure that her blood pressures remain stable. Patient reports: Reports appetite normal, Reports voiding normally, Reports pain well controlled, Reports ambulating normally : doing well (not able to nipple all the feeds so baby is having some tube feeds in the nursery) Objective - Latest Vital Signs Latest vital signs: Vital Signs Temp Pulse Resp BP Pulse Ox 12/31/23 08:00 98.2 F 87 18 157/95 98 12/31/23 04:00 101 H 16 132/78 97 12/31/23 00:00 98.0 F 90 17 153/83 97 12/30/23 20:00 81 18 165/89 95 12/30/23 16:32 98.4 F 94 16 131/83 97 12/30/23 12:00 97.8 F 96 16 155/97 97 Intake and Output 12/30/23 12/31/23 12/31/23 22:59 06:59 14:59 Other: Weight 92.306 kg - Exam Lungs: bilateral: normal Chest: Normal S1, Normal S2 Extremities: Present: normal Abdomen: Present: normal appearance, soft Uterus: Present: normal, firm Assessment and Plan (1) Normal spontaneous vaginal delivery Current Visit: Yes Status: Acute Code(s): O80 - ENCOUNTER FOR FULL-TERM UNCOMPLICATED DELIVERY SNOMED Code(s): 03763638 (2) Severe preeclampsia Current Visit: Yes Status: Acute Code(s): O14.10 - SEVERE PRE-ECLAMPSIA, UNSPECIFIED TRIMESTER SNOMED Code(s): 87716012 Plan: 1. increase labetalol to 200mg TID.
[2023-12-31] MEDS: LABETALOL 200 MG TAB PO SCH (16:36)
[2023-12-31] MEDS: amLODIPine 10 MG TAB PO STA (18:05)
[2023-12-31] MEDS: NIFEdipine XL 30 MG TAB.ER.24 PO STA (18:07)
[2024-01-01] MEDS: amLODIPine 10 MG TAB PO SCH (09:06)
--- NOTE | 2024-01-01 11:14 | P.PNOBGVD ---
Subjective - Subjective Principal diagnosis: Status post normal vaginal delivery day #4 Interval history: Patient seen and examined. Denies nausea, vomiting, chest pain, shortness of breath, calf pain, headaches or vision changes. Her blood pressure is still 150s over 90s despite labetalol 200 mg 3 times a day. It was up to 160/100 yesterday. I consulted cardiology added amlodipine 10 mg. This seems to be working well. We will keep her again 1 more night to make sure that her pressures are not labile and staying 130s to 140s over 80s. Patient reports: Reports appetite normal, Reports voiding normally, Reports pain well controlled, Reports ambulating normally : doing well (in nursery for feeding issues) Objective - Latest Vital Signs Latest vital signs: Vital Signs Temp Pulse Resp BP BP Pulse Ox 01/01/24 10:04 90 139/87 01/01/24 09:06 82 151/93 01/01/24 08:00 98.1 F 83 18 159/97 157/99 01/01/24 04:00 97 16 141/87 98 01/01/24 00:00 101 H 16 145/84 97 12/31/23 19:07 87 147/99 12/31/23 17:37 82 173/96 12/31/23 16:25 98.1 F 85 18 169/106 97 - Exam Lungs: bilateral: normal Chest: Normal S1, Normal S2 Extremities: Present: normal Abdomen: Present: normal appearance, soft Uterus: Present: normal, firm Assessment and Plan (1) Normal spontaneous vaginal delivery Current Visit: Yes Status: Acute Code(s): O80 - ENCOUNTER FOR FULL-TERM UNCOMPLICATED DELIVERY SNOMED Code(s): 43950792 (2) Severe preeclampsia Current Visit: Yes Status: Acute Code(s): O14.10 - SEVERE PRE-ECLAMPSIA, UNSPECIFIED TRIMESTER SNOMED Code(s): 77196994 Plan: 1. Continue labetalol 200 mg 3 times a day and amlodipine 10 mg. 2. Hopefully we can discharge her tomorrow as long as blood pressures stayed within a range of 1:30 to 140 over 80s.
--- NOTE | 2024-01-01 12:04 | P.CRDCN ---
History of Present Illness Consult date: 01/01/24 Consult reason: hypertension History of present illness: Goals history of present illness: This is a 23-year-old female 2, para 0 presented to the hospital on 12/26 preeclampsia at 362/7 weeks. We have been asked to evaluate the patient for hypertension management. Patient states that she had normal blood pressure readings before her running around 120 over 80s. She states her blood pressure has been high since Tuesday. Patient has been started on labetalol currently at 200 mg every 8 hours. Cardiology was contacted yesterday and amlodipine 10 mg x 1 dose was given. This morning blood pressure readings remain elevated but improved at 151/93. EKG sinus rhythm with no acute ST-T wave changes. Review Of Systems: At the time of my exam: CONSTITUTIONAL: Denies fever or chills. HEENT: Denies blurred vision, vision changes, or eye pain. Denies hemoptysis CARDIOVASCULAR: Denies chest pain. Denies orthopnea. Denies PND. Denies palpitations RESPIRATORY: Denies shortness of breath. GASTROINTESTINAL: Denies abdominal pain. Denies nausea or vomiting. HEMATOLOGIC: Denies bleeding disorders. GENITOURINARY: Denies any blood in urine. SKIN: Denies pruitis. Denies rash. Physical examination: Gen: This is a 23-year-old female in no acute distress VS: reviewed HEENT: Head is atraumatic, normocephalic. Pupils equal, round. Sclerae is anicteric. NECK: Supple. No JVD. LUNGS: Clear to auscultation. No wheezes or rhonchi. No intercostal retractions. HEART: Regular rate and rhythm. No murmur. ABDOMEN: Soft No tenderness. EXTREMITIES: No pedal edema. No calf tenderness. NEUROLOGICAL: Patient is awake, alert and oriented x3. Assessment: Preeclampsia Uncontrolled hypertension Vaginal delivery day #4 Plan: Continue labetalol 200 mg every 8 hours Add amlodipine 10 mg daily starting this morning Further recommendations to follow based upon clinical course Thank you kindly for this consultation. Nurse practitioner note has been reviewed, I agree with documented findings and plan of care. Patient was seen and examined. Past Medical History Past Medical History: No Reported History Additional Past Medical History / Comment(s): "Tachycardia event when 15yrs old" per pt. History of Any Multi-Drug Resistant Organisms: None Reported Past Surgical History: No Surgical Hx Reported Additional Past Surgical History / Comment(s): Ovarian cyst Past Anesthesia/Blood Transfusion Reactions: No Reported Reaction Past Psychological History: Anxiety, Depression Smoking Status: Current every day smoker, Vaper Past Alcohol Use History: None Reported Past Drug Use History: Marijuana - Past Family History Mother History Unknown: Yes Family Medical History: Hypertension Father Family Medical History: Cancer Medications and Allergies Home Medications Medication Instructions Recorded Confirmed Type Pnv 11/Iron Fum/Folic Acid/Om3 1 each PO DAILY 12/27/23 12/27/23 History [Wesnate Dha Softgel] Allergies Allergy/AdvReac Type Severity Reaction Status Date / Time No Known Allergies Allergy Verified 12/27/23 12:31 Physical Exam Vitals: Vital Signs Temp Pulse Resp BP Pulse Ox 01/01/24 04:00 97 16 141/87 98 01/01/24 00:00 101 H 16 145/84 97 12/31/23 19:07 87 147/99 12/31/23 17:37 82 173/96 12/31/23 16:25 98.1 F 85 18 169/106 97 Results 12/29/23 07:22 12/27/23 13:07 Current Medications Generic Name Dose Route Start Last Admin Trade Name Freq PRN Reason Stop Dose Admin Acetaminophen 650 mg 12/28/23 16:16 12/28/23 18:50 Acetaminophen Tab 325 Mg Tab PO 650 mg Q4HR PRN Administration Mild Pain or Fever >= 100.5 Hydrocodone Bitart/Acetaminophen 1 each 12/28/23 16:16 Hydrocodone/Apap 5-325mg 1 Each Tab PO Q4HR PRN Moderate Pain (Scale 4 to 6) Hydrocodone Bitart/Acetaminophen 1 each 12/28/23 16:16 Hydrocodone/Apap 7.5-325mg 1 Each Tab PO Q6H PRN Severe Pain (Scale 7 to 10) Amlodipine Besylate 10 mg 01/01/24 09:00 Amlodipine 10 Mg Tab PO DAILY [facility] Benzocaine/Menthol 1 gm 12/28/23 16:16 Benzocaine/Menthol [place] 1 Gm/[place] Aerosol TOPICAL TID PRN Perineal Discomfort Diphenhydramine HCl 25 mg 12/28/23 16:16 Diphenhydramine 25 Mg Cap PO Q6HR PRN Mild Itching Diphenhydramine HCl 50 mg 12/28/23 16:16 Diphenhydramine 50 Mg Cap PO Q6HR PRN Moderate to Severe Itching Emollient Ointment 1 applic 12/28/23 16:16 Lanolin Cream 1 Gm Tube TOPICAL Q1HR PRN Breast Feeding Hydrocortisone 1 applic 12/28/23 16:16 Hydrocortisone 2.5% Rectal Cream 30 Gm Tube RECTAL BID PRN Hemorrhoids Oxytocin/Sodium Chloride 30 500 mls @ 0 mls/hr 12/27/23 15:45 12/27/23 18:03 unit/ IV Solution IV 30 ml/hr .Q0M [facility] 30 mls/hr Administration Protocol Per Protocol Ibuprofen 600 mg 12/28/23 16:16 12/29/23 22:34 Ibuprofen 600 Mg Tab PO 600 mg Q6HR PRN Administration Mild Pain (Scale 1 To 3) Labetalol HCl 200 mg 12/31/23 16:30 01/01/24 07:50 Labetalol 200 Mg Tab PO 200 mg Q8H [facility] Administration Nalbuphine HCl 5 mg 12/27/23 17:46 12/27/23 22:13 Nalbuphine 10 Mg/Ml (10 Ml Mdv) IV 5 mg Q4HR PRN Administration Pain Ondansetron HCl 4 mg 12/28/23 10:16 12/28/23 22:35 Ondansetron 4 Mg/2 Ml Vial IVP 4 mg Q6HR PRN Administration Nausea And Vomiting Senna/Docusate Sodium 2 each 12/28/23 20:00 01/01/24 07:51 Sennosides-Docusate Sodium 1 Each Tab PO Not Given BID@0800,2000 [facility] Sertraline HCl 50 mg 12/30/23 10:51 01/01/24 07:50 Sertraline 50 Mg Tab PO 50 mg DAILY [facility] Administration Simethicone 80 mg 12/28/23 16:16 Simethicone 80 Mg Chewable PO PCHS PRN Indigestion Witch Krystyna 1 each 12/28/23 16:16 Witch Krystyna 1 Each Med..Pad TOPICAL DAILY PRN Perineal Discomfort Zolpidem Tartrate 5 mg 12/28/23 16:16 Zolpidem 5 Mg Tab PO HS PRN Insomnia 12/29/23 07:22 12/27/23 13:07
--- NOTE | 2024-01-01 20:59 | CONS ---
CONSULTATION HISTORY OF PRESENT ILLNESS: Megha is a 23-year-old lady, who is admitted to hospital electively for a vaginal delivery. During recent evaluation, she was found to have elevated blood pressures, due to which she was brought in and was induced. The patient was treated with labetalol as her blood pressures were poorly controlled. Cardiology had been consulted yesterday. At the time of my evaluation, the patient appears comfortable at rest and is free of symptoms. Blood pressures are beginning to be better controlled. When I saw her, the blood pressure was 141/87, subsequently had come down to 139/87. She is on labetalol 200 mg three times a day and I added amlodipine 10 mg daily. The patient does not have any cardiac symptoms. Physical exam is benign and unremarkable, and an EKG shows normal sinus rhythm, normal axis, normal intervals. Renal functions are normal. Hemoglobin is 9.6. The hypertension is probably related to eclampsia. PAST MEDICAL HISTORY: Negative for hypertension, diabetes, or dyslipidemia. MEDICATIONS: As charted. ALLERGIES: As charted. FAMILY HISTORY: Negative for premature coronary artery disease. SOCIAL HISTORY: She denies smoking, ETOH abuse, or drug abuse. REVIEW OF SYSTEMS: review of systems has been performed. Pertinents are as documented. PHYSICAL EXAMINATION: GENERAL: Comfortable at rest. VITAL SIGNS: Heart rate is 82 beats per minute, blood pressure is 139/87, respiratory rate 18. CHEST: Reveals good air entry bilaterally. HEART: Reveals first and second heart sounds. No gallop. No murmur. ABDOMEN: Soft. EXTREMITIES: Did not reveal any edema. Peripheral pulses are felt. EKG is normal. Renal functions are normal. ASSESSMENT AND PLAN: 1. Uncontrolled hypertension. 2. Hypertension is related to eclampsia. The patient is on labetalol. I added amlodipine. Once the blood pressures are well controlled, she can be discharged to home and we can follow her blood pressures as outpatient and adjust the medications as needed. I anticipate her hypertension to resolve over the next several weeks. MMODL / IJN: [id number] /
--- NOTE | 2024-01-02 08:48 | P.PNOBGVD ---
Subjective - Subjective Patient reports: Reports appetite normal, Reports voiding normally, Reports pain well controlled, Reports ambulating normally : doing well, in NICU (Now requiring phototherapy) Objective - Latest Vital Signs Latest vital signs: Vital Signs Temp Pulse Resp BP BP Pulse Ox 01/02/24 05:30 126/88 01/02/24 04:00 86 16 150/93 98 01/02/24 00:00 83 16 142/87 97 01/01/24 20:00 89 16 149/92 96 01/01/24 17:00 98.1 F 85 18 149/95 98 01/01/24 13:15 98.3 F 91 18 147/85 01/01/24 10:04 90 139/87 01/01/24 09:06 82 151/93 - Exam Extremities: Present: normal Abdomen: Present: normal appearance, soft Uterus: Present: normal, firm Assessment and Plan (1) 36 to 37 weeks gestation of Current Visit: Yes Status: Acute Code(s): XEB8536 - SNOMED Code(s): 040544537 (2) Severe preeclampsia Current Visit: Yes Status: Acute Code(s): O14.10 - SEVERE PRE-ECLAMPSIA, UNSPECIFIED TRIMESTER SNOMED Code(s): 18907712 (3) Normal spontaneous vaginal delivery Current Visit: Yes Status: Acute Code(s): O80 - ENCOUNTER FOR FULL-TERM UNCOMPLICATED DELIVERY SNOMED Code(s): 39346673 Plan: Continue routine care. We are awaiting clearance from cardiology for discharge. The infant will likely need to remain in the nursery for 24 hours further.
--- NOTE | 2024-01-02 13:59 | P.PN ---
Subjective Progress Note Date: 01/02/24 Consult reason: hypertension History of present illness: Goals history of present illness: This is a 23-year-old female 2, para 0 presented to the hospital on 12/26 preeclampsia at 362/7 weeks. We have been asked to evaluate the patient for hypertension management. Patient states that she had normal blood pressure readings before her running around 120 over 80s. She states her blood pressure has been high since Tuesday. Patient has been started on labetalol currently at 200 mg every 8 hours. Cardiology was contacted yesterday and amlodipine 10 mg x 1 dose was given. This morning blood pressure readings remain elevated but improved at 151/93. EKG sinus rhythm with no acute ST-T wave changes. 01/01 Patient is seen today in follow-up. Blood pressure readings are improved today at 122/81, heart rate is in the 80s and 90s, pulse ox 98% on room air. Patient thinks that she will be spending another night here. She denies having any chest pain, no shortness of breath. Physical examination: Gen: This is a 23-year-old female in no acute distress VS: reviewed HEENT: Head is atraumatic, normocephalic. Pupils equal, round. Sclerae is anicteric. NECK: Supple. No JVD. LUNGS: Clear to auscultation. No wheezes or rhonchi. No intercostal retractions. HEART: Regular rate and rhythm. No murmur. ABDOMEN: Soft No tenderness. EXTREMITIES: No pedal edema. No calf tenderness. NEUROLOGICAL: Patient is awake, alert and oriented x3. Assessment: Preeclampsia Uncontrolled hypertension Vaginal delivery day #4 Plan: Continue labetalol 200 mg every 8 hours Continue amlodipine 10 mg daily Obtain echocardiogram to assess LV function Further recommendations to follow based upon clinical course Nurse practitioner note has been reviewed, I agree with documented findings and plan of care. Patient was seen and examined. Objective - Vital Signs Vital signs: Vital Signs Temp 98.4 F 01/02/24 08:42 Pulse 97 01/02/24 08:42 Resp 16 01/02/24 08:42 BP 122/81 01/02/24 08:42 Pulse Ox 98 01/02/24 04:00 FiO2 - Labs CBC & Chem 7: 12/29/23 07:22 12/27/23 13:07
[2024-01-03 07:15] VITALS: RESP 16
[2024-01-03 08:46] VITALS: BMI 32.8
--- NOTE | 2024-01-03 09:02 | P.DS ---
Providers Date of admission: 12/27/23 15:00 Expected date of discharge: 01/03/24 Attending physician: Daniel Enriquez Consults: 12/31/23 17:42 Consult Physician Stat Consulting Provider: Kristopher Barton Consult Reason/Comments: Hypertension management Do you want consulting provider notified?: Yes Primary care physician: Stated None - Discharge Diagnosis(es) (1) 36 to 37 weeks gestation of Current Visit: Yes Status: Acute (2) Severe preeclampsia Current Visit: Yes Status: Acute (3) Normal spontaneous vaginal delivery Current Visit: Yes Status: Acute Hospital Course: The patient is a 23-year-old 2 para 0-0-1-0 admitted at 36-2/7 weeks originally by good dating parameters. She is admitted from the office where she had significantly high blood pressures and was sent to the hospital for evaluation for preeclampsia. Her blood pressures continued to be in the range that made the diagnosis of severe preeclampsia/preeclampsia with severe features. Her laboratory workup was essentially otherwise normal. After discussion regarding delivery of the infant, she was offered induction versus primary section and selected induction. She had Pitocin augmentation started and underwent artificial rupture of membranes for clear fluid. She additionally had magnesium sulfate prophylaxis for seizures started. She made very slow progress through the latent and active phase of labor. She did have an epidural catheter placed around the onset of the active phase of labor. She ultimately progressed to complete and then pushed to a normal spontaneous vaginal delivery of a viable 6 pound 8 ounce baby boy with Apgars of 8 at 1 minute and 9 at 5 minutes. The infant was ultimately taken to the nursery for mild issues of prematurity where he remains to this day for a number of other issues including jaundice. He did receive prophylactic antibiotics as well. The patient continued to have significantly labile blood pressures and initially was started on labetalol 100 mg twice daily which was fairly quickly increased to 200 mg twice daily. She continued to have significant blood pressure lability and cardiology was consulted. They added amlodipine 10 mg daily. Since that time, her blood pressures have remained in the roughly 120s over 80s range. The patient denied any secondary symptoms since delivery. She had a normal EKG and results of a echocardiogram from this morning are pending. Nevertheless, she was deemed stable for discharge on hospital day #8, day #7 and was discharged home to follow-up in my office in 6 weeks time routinely. Presumptively, she will follow-up with cardiology for blood pressure management in the shorter-term and will be discharged home on labetalol 200 mg twice daily and amlodipine 10 mg once daily. She was otherwise to use [id number] analgesic pain medications as needed. She was instructed to have nothing in the vagina for at least 6 weeks time to include intercourse. She was additionally instructed to call for any significantly increased bleeding, foul-smelling lochia, significantly increased fever or abdominal pain, perineal complaints, breast complaints, or anything else that concerned her. She understood all of her instructions and agrees to follow-up as noted above. Discharge medications are as noted above. Maternal blood type is a positive and rubella status is immune. Procedures: #1. Pitocin induction #2. Magnesium seizure prophylaxis #3. Artificial rupture of membranes #4. Epidural analgesia #5. Normal spontaneous vaginal delivery #6. Cardiology consultation #7. EKG #8. Echocardiogram Patient Condition at Discharge: Stable Plan - Discharge Summary New Discharge Prescriptions: No Action Pnv 11/Iron Fum/Folic Acid/Om3 [Wesnate Dha Softgel] 1 each PO DAILY Discharge Medication List Pnv 11/Iron Fum/Folic Acid/Om3 [Wesnate Dha Softgel] 1 each PO DAILY 12/27/23 [History] Follow up Appointment(s)/Referral(s): Daniel Enriquez MD [STAFF PHYSICIAN] - 02/07/24 1:15 pm Discharge Disposition: HOME SELF-CARE
[2024-01-03 09:35] VITALS: BP 126/86; PULSE 76; TEMP 98.5
--- NOTE | 2024-01-03 10:27 | CA ---
Transthoracic Echo Report Name: Megha Clement Age: 23 Gender: F : 2000 Exam Date: 01/03/2024 08:34 Exam Location: [facility] Ht (in): 66 Wt (lb): 203 Ordering Physician: Sona Toledo Attending/Referring Phys: [id number], [place] [employer] Callie Gililam RDCS Procedure CPT: Indications: LVF, preeclampsia Cardiac Hx: Technical Quality: Fair Contrast 1: Total Dose (mL): Contrast 2: Total Dose (mL): MEASUREMENTS (Male / Female) Normal Values 2D ECHO LV Diastolic Diameter PLAX 4.6 cm 4.2 - 5.9 / 3.9 - 5.3 cm LV Systolic Diameter PLAX 3.0 cm IVS Diastolic Thickness 1.0 cm 0.6 - 1.0 / 0.6 - 0.9 cm LVPW Diastolic Thickness 1.1 cm 0.6 - 1.0 / 0.6 - 0.9 cm LV Relative Wall Thickness 0.5 RV Internal Dim ED PLAX 2.9 cm LA Volume 70.9 cm??? 18 - 58 / 22 - 52 cm??? LA Volume Index 33.7 cm???/m??? 16 - 28 cm???/m??? M-MODE Aortic Root Diameter MM 2.9 cm LA Systolic Diameter MM 3.7 cm LA Ao Ratio MM 1.3 AV Cusp Separation MM 2.4 cm DOPPLER AV Peak Velocity 153.5 cm/s AV Peak Gradient 9.4 mmHg AV Mean Velocity 111.9 cm/s AV Mean Gradient 5.6 mmHg AV Velocity Time Integral 35.4 cm LVOT Peak Velocity 109.3 cm/s LVOT Peak Gradient 4.8 mmHg LVOT Velocity Time Integral 27.1 cm MV Area PHT 3.3 cm??? Mitral E Point Velocity 112.1 cm/s Mitral A Point Velocity 59.7 cm/s Mitral E to A Ratio 1.9 MV Deceleration Time 229.6 ms MV E' Velocity 10.8 cm/s Mitral E to MV E' Ratio 10.4 TR Peak Velocity 211.3 cm/s TR Peak Gradient 17.9 mmHg Right Ventricular Systolic Press 22.9 mmHg FINDINGS Left Ventricle Normal Left ventricular size, wall thickness, systolic function with no obvious regional wall motion abnormalities. Normal Left ventricular diastolic filling pattern. Left ventricular ejection fraction is estimated at 55-60 %. Right Ventricle Normal right ventricular size and function. Right ventricular systolic pressure within normal limits. Right Atrium Normal right atrial size. Left Atrium Mildly increased left atrial volume. Mitral Valve Structurally normal mitral valve. No mitral stenosis. Trace to mild mitral regurgitation. Aortic Valve Cannot exclude bicuspid aortic valve with fusion of the right and left coronary cusp Tricuspid Valve Structurally normal tricuspid valve. Trace tricuspid regurgitation. Pulmonic Valve Structurally normal pulmonic valve. Pericardium Small circumferential pericardial effusion Aorta Normal size aortic root and proximal ascending aorta. CONCLUSIONS Normal LV systolic function Normal RV systolic function Cannot exclude bicuspid aortic valve with fusion of the right and left coronary cusps. SATURNINO needed for further clarification Normal aortic root and proximal ascending aorta Small circumferential pericardial effusion Previewed by: Dr. Moose Kimble MD (Electronically Signed) Final Date: 03 January 2024 10:26
--- NOTE | 2024-01-03 12:35 | P.PN ---
Subjective Progress Note Date: 01/03/24 Consult reason: hypertension History of present illness: Goals history of present illness: This is a 23-year-old female 2, para 0 presented to the hospital on 12/26 preeclampsia at 362/7 weeks. We have been asked to evaluate the patient for hypertension management. Patient states that she had normal blood pressure readings before her running around 120 over 80s. She states her blood pressure has been high since Tuesday. Patient has been started on labetalol currently at 200 mg every 8 hours. Cardiology was contacted yesterday and amlodipine 10 mg x 1 dose was given. This morning blood pressure readings remain elevated but improved at 151/93. EKG sinus rhythm with no acute ST-T wave changes. 01/01 Patient is seen today in follow-up. Blood pressure readings are improved today at 122/81, heart rate is in the 80s and 90s, pulse ox 98% on room air. Patient thinks that she will be spending another night here. She denies having any chest pain, no shortness of breath. 01/02 Patient's blood pressure readings are much improved at 126/86, heart rate is in the 70s and 80s, pulse ox 98% on room air. Echocardiogram revealed EF of 55 to 60%. Cannot exclude bicuspid aortic valve with fusion of the right and left coronary cups. SATURNINO needed for further clarification. Normal aortic root and proximal ascending aorta. Small circumferential pericardial effusion. Patient was updated with the echocardiogram results with recommendations to follow-up with Dr. Angelica Mo in the office for further workup. Physical examination: Gen: This is a 23-year-old female in no acute distress VS: reviewed HEENT: Head is atraumatic, normocephalic. Pupils equal, round. Sclerae is anicteric. LUNGS: Clear to auscultation. No wheezes or rhonchi. No intercostal retractions. HEART: Regular rate and rhythm. No murmur. EXTREMITIES: No pedal edema. No calf tenderness. NEUROLOGICAL: Patient is awake, alert and oriented x3. Assessment: Preeclampsia Uncontrolled hypertension Vaginal delivery day #4 Plan: Continue labetalol 200 mg every 8 hours Continue amlodipine 10 mg daily Patient is cleared for discharge from cardiology and may follow-up with Dr. Angelica Mo in 2 weeks. Nurse practitioner note has been reviewed, I agree with documented findings and plan of care. Patient was seen and examined. Objective - Vital Signs Vital signs: Vital Signs Temp 98.5 F 01/03/24 08:00 Pulse 76 01/03/24 08:00 Resp 16 01/03/24 08:00 BP 126/86 01/03/24 08:00 Pulse Ox 98 01/03/24 08:00 FiO2 Intake & Output 01/02/24 01/03/24 01/03/24 18:59 06:59 18:59 Weight 92.306 kg - Labs CBC & Chem 7: 12/29/23 07:22 12/27/23 13:07
== END 2024-01-03 14:15 | disposition home or self-care (01) | DRG 560 ==
LOC: FBPOP 12:13 → 4FBP 15:00
PROVIDERS: ADMIT Obstetrics & Gynecology; ATTEND Obstetrics & Gynecology
PROC: 10E0XZZ Delivery of Products of Conception, External Approach (ICD-10-PCS; principal; 2023-12-28)
PROC: 3E033VJ Introduction of Other Hormone into Peripheral Vein, Percutaneous Approach (ICD-10-PCS; 2023-12-28)
PROC: 10907ZC Drainage of Amniotic Fluid, Therapeutic from Products of Conception, Via Natural or Artificial Opening (ICD-10-PCS; 2023-12-28)
DX: O14.14 Severe pre-eclampsia complicating childbirth (principal); Z37.0 Single live birth; I31.39 Other pericardial effusion (noninflammatory); O99.334 Smoking (tobacco) complicating childbirth; F17.290 Nicotine dependence, other tobacco product, uncomplicated; Z87.59 Personal history of other complications of pregnancy, childbirth and the puerperium; Z3A.36 36 weeks gestation of pregnancy; Z82.49 Family history of ischemic heart disease and other diseases of the circulatory system
CPT/HCPCS: 36415; 59025; 80306; 81001; 82565; 83615; 84450; 84460; 84520; 84550; 85025; 85384; 85610; 85730; 86762; 88307; 93005; 93306; 96361; 96367; 96374; 96375; 99215